=== PATIENT | male | born 1970 | race Caucasian/White ===

== ENCOUNTER 2018-09-22 17:37 | Emergency (ER) | payer SELFPAY ==
[~2018-09-22] VITALS: Ht 188 cm; Wt 72.6 kg
[~2018-09-22 17:37] MED LIST: HYDR-971 PO; OMEP20TA8 PO
[2018-09-22] MEDS ORDERED: IBUPROFEN 400 MG TABLET. PO ONE (18:00)
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
[2018-09-22] MEDS ORDERED: HYDR-971 PO (19:37)
[2018-09-22 19:50] VITALS: BP 101/62
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
== END 2018-09-22 19:50 | disposition home or self-care (01) ==
LOC: ER 17:37
DX: S82.61XA Displaced fracture of lateral malleolus of right fibula, initial encounter for closed fracture (principal); S82.391A Other fracture of lower end of right tibia, initial encounter for closed fracture; X50.1XXA Overexertion from prolonged static or awkward postures, initial encounter; Y93.89 Activity, other specified; Y92.89 Other specified places as the place of occurrence of the external cause; Y99.8 Other external cause status
CPT/HCPCS: 29515; 73610; 99284

== ENCOUNTER 2018-09-29 11:35 | Day surgery (SDC) | payer SELFPAY ==
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
[~2018-09-29] VITALS: Ht 182.9 cm; Wt 72.6 kg
[~2018-09-29 11:35] MED LIST changes: +BUPIVACAINE-EPI 0.5%-1:200000 50 ML VIAL. ONE; +HYDROmorphone 2 MG/ML VIAL IV PRN; +IV RINGERS,LACTATED 1000ML 1,000 ML IV SCH; +LIDOCAINE 1% PF 2 ML VIAL. ID PRN; +MORPHINE SULFATE 2 MG/ML VIAL. IV PRN; +ONDANSETRON PF 4 MG/2 ML VIAL. IV PRN; +PROCHLORPERAZINE 10 MG/2 ML VIAL. IV PRN; +fentaNYL PF VIAL 100 MCG/2 ML VIAL IV PRN
[2018-09-29] MEDS ORDERED: IBUP-1027 PO (12:05)
[2018-09-29] MEDS ORDERED: PROPOFOL 20 ML IV ONE ×2 (12:06→14:26)
[2018-09-29] MEDS ORDERED: SEVOFLURANE 61 TO 120 MINUTES. IH ONE (12:06)
[2018-09-29] MEDS ORDERED: LIDOCAINE 2% PF Vial for OR 5 ML VIAL. ONE (12:06)
[2018-09-29] MEDS ORDERED: KETOROLAC 30 MG/ML INJ FOR OR. INJ ONE (12:07)
[2018-09-29] MEDS ORDERED: ONDANSETRON PF 4 MG/2 ML VIAL. ONE (12:07)
[2018-09-29] MEDS ORDERED: fentaNYL PF VIAL 100 MCG/2 ML VIAL ONE ×3 (12:07→14:49)
[2018-09-29] MEDS ORDERED: DEXAMETHASONE SOD PHOS 20 MG/5 ML VIAL. ONE (12:07)
--- NOTE | 2018-09-29 14:37 | PDOC4 ---
Operative Note Operative Note Date of Procedure: December 02, 2017 Pre-Op Diagnosis: closed right ankle lateral and posterior malleolus fracture (bimalleolar ankle fracture) displaced bimalleolar fracture of right lower leg, initial encounter for closed fracture S82.841A Post-Op Diagnosis: same Procedure: Open treatment of bimalleolar ankle fracture, (lateral and posterior malleoli), with internal fixation of the lateral malleolus CPT 68387 Anesthesia Type: General Surgeon: Bill Jerome MD Label Maker: Laina Jovel PA-C EBL: 10 mL Specimens Obtained: none Drains: none Complications: none Tourniquet time: 27 Minutes Tourniquet pressure: 350 mm Hg Implants: Synthes 7 hole one third tubular locking plate stainless steel, 3.5 mm cortex screws, 4.0 mm cancellous screws, 3.5 mm locking screws INDICATIONS FOR PROCEDURE: The patient is a 48 year-old with a right ankle fracture. The patient and I discussed the risks and benefits of operative treatment. Surgical fixation likely will give a better long-term outcome. We talked about the risks of the operative fixation such as the risks of bleeding, infection, blood clots, need for hardware removal, stiffness or other potential surgical or anesthetic complications. All of the patient's questions about surgery were answered and he desired to proceed. Written consent was obtained. PROCEDURE IN DETAIL: The patient was identified in the preoperative holding area. The correct right ankle was marked by me. The patient was taken to the operating room, where a general anesthetic was used. Preoperative antibiotics were given intravenously. A timeout procedure was performed. A tourniquet was used on the upper right thigh. The limb was prepared in sterile fashion with ChloraPrep solution and sterile drapes were applied with a sterile glove over the toes and heel. An Esmarch bandage was used to exsanguinate the limb and the tourniquet was inflated. The direct lateral approach to the distal fibula was used. Sharp dissection was used and Bovie electrocautery was used only as needed for hemostasis. The fracture was identified and exposed. The fracture was gapped open with some traction and with a [place] elevator, and fracture hematoma was cleared with curettes, rongeurs and irrigation. I then had my cement tester assistant apply longitudinal traction and rotation to help reduce the fracture, and a bone clamp was used to now partially stabilize the reduced fracture. A Ziyad wire was used for preliminary fixation, and later removed. An interfragmentary lag screw was placed using a threaded hole and a gliding hole, across the fracture site to stabilize it, so that the bone clamp could be removed. I then applied a 7 hole locking plate laterally. I contoured the very tip of the plate to fit the tip of the distal fibula. I applied cortical screws proximally and cancellous and locking screws distally for rigid fixation across the fracture site to stabilize it. Satisfactory reduction and fixation was obtained. I now used the small image intensifier to confirm the reduction and fixation. All of the images were interpreted intraoperatively in real time by me. I now stressed the syndesmosis and the medial clear space did not open. This was nicely stable and reduced. The posterior malleolus was assessed radiographically, and was stable to stress , and was a small enough portion of the articular surface, not to require fixation. The tourniquet was released. Bovie electrocautery was used for hemostasis. Copious saline irrigation was used. Bupivacaine with epinephrine was injected into the skin edges. The incision was closed in layers with 2-0 Vicryl and vivian by my Ms. Jovel. Xeroform and a sterile dressing and a splint were applied by Ms. Jovel. There were no apparent complications. BILL JEROME MD Sep 29, 2018 14:37
[2018-09-29] MEDS ORDERED: oxyCODONE/APAP 5/325 1 TAB TABLET PO PRN (15:00)
[2018-09-29 15:17] VITALS: BP 125/72
== END 2018-09-29 15:22 | disposition home or self-care (01) ==
LOC: SURG 11:35 → MERGE 14:30 → SURG 15:22
PROVIDERS: ATTEND Orthopaedic Surgery
DX: S82.841A Displaced bimalleolar fracture of right lower leg, initial encounter for closed fracture (principal); X58.XXXA Exposure to other specified factors, initial encounter; Y93.89 Activity, other specified; Y92.89 Other specified places as the place of occurrence of the external cause; Y99.8 Other external cause status; Z79.899 Other long term (current) drug therapy
CPT/HCPCS: 27814; A7015; C1713; J0690; J1100; J1885; J2001; J2405; J2704; J3010

== ENCOUNTER 2020-11-14 12:07 | Emergency (ER) | payer SELFPAY ==
[~2020-11-14] VITALS: Ht 188 cm; Wt 77.7 kg
[~2020-11-14 12:07] MED LIST changes: -BUPIVACAINE-EPI 0.5%-1:200000 50 ML VIAL. ONE; +HYDR-3164 PO; -HYDR-971 PO; -HYDROmorphone 2 MG/ML VIAL IV PRN; +IBUP-1027 PO; -IV RINGERS,LACTATED 1000ML 1,000 ML IV SCH; -LIDOCAINE 1% PF 2 ML VIAL. ID PRN; -MORPHINE SULFATE 2 MG/ML VIAL. IV PRN; -ONDANSETRON PF 4 MG/2 ML VIAL. IV PRN; -PROCHLORPERAZINE 10 MG/2 ML VIAL. IV PRN; -fentaNYL PF VIAL 100 MCG/2 ML VIAL IV PRN
[2020-11-14 13:18] LABS: BASO # 0.1 x10^3/uL (0.0-0.2); BASO % 1 % (0-3); EOS # 0.4 x10^3/uL (0.0-0.7); EOS % 3 % (0-3); HEMATOCRIT 36.3 % (39.0-53.0); HEMOGLOBIN 12.9 g/dL (13.0-17.5); LYMPH # 1.3 x10^3/uL (1.0-4.8); LYMPH % 11 % (24-48); MEAN CORPUSCULAR HEMOGLOBIN 34 pg (25-35); MEAN CORPUSCULAR HGB CONC 36 g/dL (31-37); MEAN CORPUSCULAR VOLUME 96 fL (79-100); MONO # 1.1 x10^3/uL (0.0-1.1); MONO % 9 % (0-9); NEUT # 9.4 x10^3/uL (1.8-7.7); NEUT % 76 % (31-73); PLATELET COUNT 360 x10^3/uL (140-400); RED BLOOD COUNT 3.78 x10^6/uL (4.30-5.70); RED CELL DISTRIBUTION WIDTH 12.7 % (11.5-14.5); WHITE BLOOD COUNT 12.3 x10^3/uL (4.0-11.0)
[2020-11-14 13:39] LABS: CALCIUM 8.6 mg/dL (8.5-10.1); CREATININE 0.7 mg/dL (0.7-1.3); GFR 119.4; POTASSIUM 3.3 mmol/L (3.5-5.1)
[2020-11-14 13:42] LABS: ALBUMIN/GLOBULIN RATIO 0.8 (1.0-1.7); TOTAL BILIRUBIN 0.4 mg/dL (0.2-1.0)
[2020-11-14] MEDS ORDERED: CLINDAMYCIN 600MG PREMIX 50 ML IV ONE (14:00)
--- NOTE | 2020-11-14 14:08 | RAD ---
Examination: XR HAND_LEFT 3 VIEWS History: Reason: left hand wound and infection on dorsal side / Spl. Instructions: / History: Comparison/Correlation: None Findings: 3 images of the left hand were obtained. Joint spaces are unremarkable. Marked soft tissue swelling the dorsal aspect of the hand noted. No ra diopaque foreign body. No fracture or bone destruction. Impression: Soft tissue swelling. Consider further evaluation if osteomyelitis is a concern. Electronically signed by: Dago Adams MD (11/14/2020 2:05 PM) [id number]
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
[2020-11-14] MEDS ORDERED: DIPH,PERTUSS(ACELL),TET VAC/PF 0.5 ML SYRINGE. VAX IM ONE (14:45)
[2020-11-14] MEDS ORDERED: CLIN150C14 PO (14:49)
[2020-11-14 15:04] VITALS: BP 127/77
== END 2020-11-14 15:04 | disposition left against medical advice (07) ==
LOC: ER 12:07
DX: L03.114 Cellulitis of left upper limb (principal); R60.0 Localized edema; R20.2 Paresthesia of skin; Z98.890 Other specified postprocedural states; Z87.891 Personal history of nicotine dependence
CPT/HCPCS: 36415; 73130; 80053; 83605; 85025; 87040; 90471; 90715; 96365; 99284; J3490